=== PATIENT | male | born 1980 | race African-American/Black ===

== ENCOUNTER 2016-08-13 20:07 | Emergency (ER) | payer OTHER ==
--- NOTE | 2016-08-13 21:46 | EDDOCDS ---
Physician Documentation [facility] Name: Jack Robertson Age: 36 yrs Sex: Male : 1980 Arrival Date: 08/13/2016 Time: 20:07 Bed TR8 Private MD: Other - Complete Info On Cds Disposition: 08/13/16 21:11 Discharged to Home/Self Care. Impression: Laceration without foreign body of nose - old, not sutured. - Condition is Stable. - Discharge Instructions: Non-Sutured Laceration, Facial Laceration, [id number]. - Medication Reconciliation, Local Pharmacy Hours form. - Follow up: Lucie Deras [facility]; When: 1 - 2 days; Reason: Wound/Symptom Recheck, Further diagnostic work-up, Recheck today's complaints, Continuance of care. - Problem is new. - Symptoms are unchanged. Historical: - Allergies: tylenol gel caps (Swelling); - Home Meds: 1. none - PMHx: none; - PSHx: none; - Immunization history:: Last tetanus immunization: up to date. - Family history: Not pertinent. - Social history: Smoking status: Patient states was never smoker of tobacco. No barriers to communication noted, The patient speaks fluent Portuguese, Speaks appropriately for age. - : The pt / caregiver states he / she is not on anticoagulants. Home medication list is obtained from the patient. - Exposure Risk Screening:: None identified. Vital Signs: 08/13 20:10 BP 139 / 88; Pulse 80; Resp 18 S; Temp 99.5(O); Pulse Ox 98% on R/A; Weight 77.11 kg / gr2 170 lbs (R); Height 5 ft. 11 in. (180.34 cm) (R); Pain 2/10; 20:10 Body Mass Index 23.71 (77.11 kg, 180.34 cm) gr2 MDM: 21:34 Financial registration complete. [email or web address] 21:34 [facility] Payment Agreement was scanned into [employer] and attached to record. [email or web address] Signatures: Sanjay Dodson RN RN cz Wolfenden, Brandon, PA PA btw Hafner, Jane, RN RN cjh Sorenson, Kimberly, Reg Reg [email or web address] The chart was reviewed and I authenticate all verbal orders and agree with the evaluation and treatment provided.Attachments: 21:34 [facility] Payment Agreement [email or web address] MTDD
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
--- NOTE | 2016-08-15 22:47 | EDDOCDS ---
Physician Documentation [facility] Name: Jack Robertson Age: 36 yrs Sex: Male : 1980 Arrival Date: 08/13/2016 Time: 20:07 Bed TR8 Private MD: Other - Complete Info On Cds Disposition: 08/13/16 21:11 Discharged to Home/Self Care. Impression: Laceration without foreign body of nose - old, not sutured. - Condition is Stable. - Discharge Instructions: Non-Sutured Laceration, Facial Laceration, [id number]. - Medication Reconciliation, Local Pharmacy Hours form. - Follow up: Lucie Deras [facility]; When: 1 - 2 days; Reason: Wound/Symptom Recheck, Further diagnostic work-up, Recheck today's complaints, Continuance of care. - Problem is new. - Symptoms are unchanged. Historical: - Allergies: tylenol gel caps (Swelling); - Home Meds: 1. none - PMHx: none; - PSHx: none; - Immunization history:: Last tetanus immunization: up to date. - Family history: Not pertinent. - Social history: Smoking status: Patient states was never smoker of tobacco. No barriers to communication noted, The patient speaks fluent Solomon Islander, Speaks appropriately for age. - : The pt / caregiver states he / she is not on anticoagulants. Home medication list is obtained from the patient. - Exposure Risk Screening:: None identified. Vital Signs: 08/13 20:10 BP 139 / 88; Pulse 80; Resp 18 S; Temp 99.5(O); Pulse Ox 98% on R/A; Weight 77.11 kg / gr2 170 lbs (R); Height 5 ft. 11 in. (180.34 cm) (R); Pain 2/10; 20:10 Body Mass Index 23.71 (77.11 kg, 180.34 cm) gr2 MDM: 21:34 Financial registration complete. [facility] 21:34 [facility] Payment Agreement was scanned into [employer] and attached to record. 08/14 13:06 T-Sheet-- Draft Copy was scanned into [employer] and attached to record. gb Signatures: Sanjay Dodson RN RN Ashlyn Jorge, Mio Reg All Baugh PA PA btw Hafner, Jane,RN RN [facility] Mitzy Meng, Reg Reg [email or web address] The chart was reviewed and I authenticate all verbal orders and agree with the evaluation and treatment provided.Attachments: 08/13 21:34 [facility] Payment Agreement [email or web address] 08/14 13:06 T-Sheet-- Draft Copy gb Chart Complete MTDD
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
--- NOTE | 2016-08-15 22:47 | EDDOCDS ---
Physician Documentation [facility] Name: Jack Robertson Age: 36 yrs Sex: Male : 1980 Arrival Date: 08/13/2016 Time: 20:07 Bed TR8 Private MD: Other - Complete Info On Cds Disposition: 08/13/16 21:11 Discharged to Home/Self Care. Impression: Laceration without foreign body of nose - old, not sutured. - Condition is Stable. - Discharge Instructions: Non-Sutured Laceration, Facial Laceration, [id number]. - Medication Reconciliation, Local Pharmacy Hours form. - Follow up: Lucie Deras [facility]; When: 1 - 2 days; Reason: Wound/Symptom Recheck, Further diagnostic work-up, Recheck today's complaints, Continuance of care. - Problem is new. - Symptoms are unchanged. Historical: - Allergies: tylenol gel caps (Swelling); - Home Meds: 1. none - PMHx: none; - PSHx: none; - Immunization history:: Last tetanus immunization: up to date. - Family history: Not pertinent. - Social history: Smoking status: Patient states was never smoker of tobacco. No barriers to communication noted, The patient speaks fluent Angolan, Speaks appropriately for age. - : The pt / caregiver states he / she is not on anticoagulants. Home medication list is obtained from the patient. - Exposure Risk Screening:: None identified. Vital Signs: 08/13 20:10 BP 139 / 88; Pulse 80; Resp 18 S; Temp 99.5(O); Pulse Ox 98% on R/A; Weight 77.11 kg / gr2 170 lbs (R); Height 5 ft. 11 in. (180.34 cm) (R); Pain 2/10; 20:10 Body Mass Index 23.71 (77.11 kg, 180.34 cm) gr2 MDM: 21:34 Financial registration complete. [facility] 21:34 [facility] Payment Agreement was scanned into [employer] and attached to record. 08/14 13:06 T-Sheet-- Draft Copy was scanned into [employer] and attached to record. gb Signatures: Sanjay Dodson RN RN Ashlyn Jorge, Mio Reg All Baugh PA PA btw Hafner, Jane,RN RN [facility] Mitzy Meng, Reg Reg [email or web address] The chart was reviewed and I authenticate all verbal orders and agree with the evaluation and treatment provided.Attachments: 08/13 21:34 [facility] Payment Agreement [email or web address] 08/14 13:06 T-Sheet-- Draft Copy gb Chart Complete MTDD
== END 2016-08-13 21:45 | disposition home or self-care (01) ==
LOC: M ED 20:07
DX: S01.21XA Laceration without foreign body of nose, initial encounter (principal); W20.8XXA Other cause of strike by thrown, projected or falling object, initial encounter; Y92.098 Other place in other non-institutional residence as the place of occurrence of the external cause; Y93.89 Activity, other specified; Y99.8 Other external cause status; Z88.6 Allergy status to analgesic agent